=== PATIENT | female | born 1940 | race Caucasian/White ===

== ENCOUNTER → 2017-05-05 | Outpatient (CLI) | payer OTHER, BC ==
--- NOTE | ~2017-05-05 | EKG ---
[address] [address] ELECTROCARDIOGRAM REPORT Name: KEILY KEY [id number] Admission: 05/05/17 Attend Phys: Canelo Love, Discharge: Date of : 44 Report #: [id number] THIS REPORT FOR: //name// [facility]ly [facility] Test Date: 2017-05-05 Test Time: 14:20:07 Pat Name: KEILY KEY Department: Room: Gender: F Offline Editor: Edy DAVIDSON : 1940 Requested By: Canelo Love Order Number: [id number] MD: Ryan Kim Measurements Intervals [place] Rate: 68 P: 67 NE: 159 QRS: -63 QRSD: 86 T: 17 QT: 417 QTc: 444 Interpretive Statements Sinus rhythm Inferior infarct, old Anteroseptal infarct, old No previous ECG available for comparison Electronically Signed On 05-06-2017 13:19:59 CDT by Ryan Kim [email or web address] <ELECTRONICALLY SIGNED> By: Ryan Kim MD 05/06/17 1319 D: [id number] Ryan Kim MD /JASON
== END ==
LOC: RAD 13:15
DX: J45.909 Unspecified asthma, uncomplicated (principal)